=== PATIENT | female | born 1965 | race Two or more races ===

== ENCOUNTER 2019-03-14 20:45 | Emergency (ER) | payer OTHER ==
[~2019-03-14] VITALS: Ht 175.3 cm; Wt 65.8 kg
[2019-03-14 21:04] VITALS: BP 131/76
== END 2019-03-14 21:49 | disposition home or self-care (01) ==
LOC: ER 20:48
DX: S41.031A Puncture wound without foreign body of right shoulder, initial encounter (principal); S21.231A Puncture wound without foreign body of right back wall of thorax without penetration into thoracic cavity, initial encounter; W57.XXXA Bitten or stung by nonvenomous insect and other nonvenomous arthropods, initial encounter; Y93.89 Activity, other specified; Y92.89 Other specified places as the place of occurrence of the external cause; Y99.8 Other external cause status